=== PATIENT | female | born 1935 | race Two or more races ===

== ENCOUNTER 2023-02-20 12:37 | Inpatient (IN) | payer OTHER ==
[~2023-02-20] VITALS: Ht 162.6 cm; Wt 63.5 kg
[~2023-02-20 12:37] MED LIST: CALCIUM 600 +1 EAC1 PO; CELEBREX100 MG PO; CRESTOR5 MG PO; CYMBALTA30 MG; DILTIAZEM ER180 M1; LASIX20 MG PO; LASIX40 MG; LASIX40 MG PO; LEVOTHROID25 MCG PO; LYRICA50 MG PO; MEDROLPACK PO; SINGULAIR10 MG; VASOFLEX D1 CA1 EACH PO; VASOFLEX TABLET1 TAB; ZOCOR20 MG
[2023-02-20] MEDS ORDERED: LEVO-T25 MCG (12:51)
[2023-02-20] MEDS ORDERED: MONTELUKAST SOD10 MG PO (12:52)
[2023-02-20] MEDS ORDERED: ARICEPT10 MG (12:52)
[2023-02-20] MEDS ORDERED: TRAZODONE HCL150 MG (12:52)
[2023-02-20] MEDS ORDERED: LASIX20 MG (12:52)
[2023-02-20] MEDS ORDERED: PANTOPRAZOLE SO40 MG PO (12:53)
[2023-02-20 14:05] LABS: HEMATOCRIT 31.5 % (36.0-45.00); HEMOGLOBIN 10.3 g/dL (12.0-15.00); MEAN CELL VOLUME 90.4 fL (80.00-100.00); MEAN CORPUSCULAR HEMOGLOBIN 29.6 pg (27.00-32.0); MEAN CORPUSCULAR HGB CONC 32.7 g/dl (32.0-36.0); PLATELET COUNT 357 K/uL (150-450); RED BLOOD COUNT 3.48 M/uL (4.00-6.00); RED CELL DISTRIBUTION WIDTH 13.6 % (11.5-14.5)
[2023-02-20 14:31] LABS: ALBUMIN 2.9 gm/dL (3.4-5.0); BILIRUBIN TOTAL 0.69 mg/dL (0.3-1.2); CALCIUM 8.9 mg/dL (8.5-10.1); CREATININE SERUM 2.31 mg/dL (0.55-1.02); GFR 20.05; GLOBULINA 3.5 G/DL (2.4-3.5); INR 1.18; PARTIAL THROMBOPLASTIN TIME 26.4 SECONDS (22.0-34.0); POTASSIUM 3.67 mEq/L (3.5-5.1); PROTHROMBIN TIME 12.2 SECONDS (9.0-11.5); TOTAL PROTEIN 6.4 gm/dL (6.4-8.2)
[2023-02-20 14:53] LABS: URINE APPEARANCE Cloudy; URINE BILIRRUBIN Negative (NEGATIVE); URINE BLOOD Negative; URINE COLOR Yellow; URINE GLUCOSE Negative (NEGATIVE); URINE LEUKOCYTE Trace; URINE NITRATE Negative; URINE PROTEIN 30 (NEGATIVE)
[2023-02-20 14:59] LABS: URINE EPITHELIAL CELLS 28.2 uL (0.0-38.8); URINE WBC 29.8 uL (0.0-23.2)
[2023-02-20 15:17] LABS: URINE BACTERIA > 9821.5 uL (0.0-1933)
[2023-02-20 17:08] LABS: ABG PH 7.309 (7.35-7.45); ABG PO2 218.7 mmHg (80-100); ABG pCO2 29.4 mmHg (35-45); BASE EXCESS -10.3 mmol/l; BICARBONATE 14.4 mmol/l (23-25); SaO2 99.6 %; Tco2 15.3 mmol/l
[2023-02-20 17:09] LABS: allen test SATISFACTORY; o2 100 %; puncture site RADIAL RIGHT
== END 2023-02-20 21:00 | disposition expired | DRG 390 ==
LOC: ER 12:38 → SEC-K 20:18 → ICU-2 20:18 → SEC-K 20:28
PROVIDERS: General Practice; ADMIT Internal Medicine; ATTEND Internal Medicine
PROC: BW21YZZ Computerized Tomography (CT Scan) of Abdomen and Pelvis using Other Contrast (ICD-10-PCS; principal; 2023-02-20)
PROC: 3E0F7GC Introduction of Other Therapeutic Substance into Respiratory Tract, Via Natural or Artificial Opening (ICD-10-PCS; 2023-02-20)
PROC: 4A033R1 Measurement of Arterial Saturation, Peripheral, Percutaneous Approach (ICD-10-PCS; 2023-02-20)
PROC: 0BH17EZ Insertion of Endotracheal Airway into Trachea, Via Natural or Artificial Opening (ICD-10-PCS; 2023-02-20)
PROC: 5A1935Z Respiratory Ventilation, Less than 24 Consecutive Hours (ICD-10-PCS; 2023-02-20)
PROC: 5A12012 Performance of Cardiac Output, Single, Manual (ICD-10-PCS; 2023-02-20)
DX: K56.699 Other intestinal obstruction unspecified as to partial versus complete obstruction (principal); K56.2 Volvulus; I46.9 Cardiac arrest, cause unspecified; Z20.822 Contact with and (suspected) exposure to COVID-19